=== PATIENT | female | born 1970 | race African-American/Black ===

== ENCOUNTER 2020-02-28 14:03 | Emergency (ER) | payer OTHER ==
[~2020-02-28] VITALS: Ht 157.5 cm; Wt 108.9 kg
[2020-02-28] MEDS ORDERED: NAPROSYN500 MG PO (15:25)
[2020-02-28 15:49] VITALS: BP 140/67
== END 2020-02-28 15:49 | disposition home or self-care (01) ==
LOC: ER 14:03
DX: S46.911A Strain of unspecified muscle, fascia and tendon at shoulder and upper arm level, right arm, initial encounter (principal); X50.1XXA Overexertion from prolonged static or awkward postures, initial encounter; Y93.89 Activity, other specified; Y92.69 Other specified industrial and construction area as the place of occurrence of the external cause; Y99.0 Civilian activity done for income or pay